=== PATIENT | female | born 1975 ===

== ENCOUNTER 2017-01-19 10:17 | Emergency (ER) | payer MEDICAID, OTHER ==
[2017-01-19 10:18] VITALS: BMI 24.1
[2017-01-19 10:45] VITALS: BP 105/73; PULSE 62; RESP 14; TEMP 98.3; O2SAT 100
--- NOTE | 2017-01-19 11:25 | ED PDOC ---
HPI: Psych/Substance Abuse Time Seen by Provider: 01/19/17 10:32 Chief Complaint (Nursing): Medical Clearance Chief Complaint (Provider): Medical Clearance History Per: Patient History/Exam Limitations: no limitations Onset/Duration Of Symptoms: Mins (Prior to arrival) Current Symptoms Are (Timing): Still Present Additional Complaint(s): Emma Hendricks is a 41 year old female who was brought in by police under arrest for medical and psychiatric clearance. Patients have no complaints. Patients deny any medical history. PMD: Adam Schaffer MD Past Medical History Reviewed: Historical Data, Nursing Documentation, Vital Signs Vital Signs: Last Vital Signs Temp 98.3 F 01/19/17 10:44 Pulse 62 01/19/17 10:44 Resp 14 01/19/17 10:44 BP 105/73 01/19/17 10:44 Pulse Ox 100 01/19/17 10:44 - Medical History PMH: Anemia, Anxiety, Arthritis, Asthma, Depression, Gastrointestinal Ulcer, Pneumonia Denies: Dementia, Diabetes, Hepatitis, HIV, HTN, Personality Disorder, Post Traumatic Stress Disorder, Chronic Kidney Disease, Schizophrenia, Seizures, Sexually Transmitted Disease - Family History Family History: States: Unknown Family Hx - Social History Current smoker - smoking cessation education provided: Yes (Some days) Alcohol: None Drugs: Opiates (Heroin, patient denies) - Immunization History Hx Tetanus Toxoid Vaccination: No Hx Influenza Vaccination: No Hx Pneumococcal Vaccination: No - Home Medications Home Medications: Ambulatory Orders Medication Instructions Recorded No Known Home Med 12/20/15 - Allergies Allergies/Adverse Reactions: Allergies Allergy/AdvReac Type Severity Reaction Status Date / Time No Known Allergies Allergy Verified 01/19/17 10:34 Review of Systems ROS Statement: Except As Marked, All Systems Reviewed And Found Negative Physical Exam - Reviewed Nursing Documentation Reviewed: Yes Vital Signs Reviewed: Yes - Physical Exam Appears: Positive for: Well, Non-toxic, No Acute Distress Head Exam: Positive for: ATRAUMATIC, NORMAL INSPECTION, NORMOCEPHALIC Skin: Positive for: Normal Color, Warm, Dry Eye Exam: Positive for: Normal appearance, EOMI. Negative for: PERRL (Pupils pinpoint and slowly reactive to light) Neck: Positive for: Normal, Painless ROM, Supple Cardiovascular/Chest: Positive for: Regular Rate, Rhythm. Negative for: Murmur Respiratory: Positive for: Normal Breath Sounds. Negative for: Respiratory Distress Gastrointestinal/Abdominal: Positive for: Normal Exam, Bowel Sounds, Soft. Negative for: Tenderness Back: Positive for: Normal Inspection. Negative for: L CVA Tenderness, R CVA Tenderness, Vertebral Tenderness Extremity: Positive for: Normal ROM. Negative for: Pedal Edema, Deformity Neurologic/Psych: Positive for: Other (Lethargic, but arousable with slurred speech) - ECG O2 Sat by Pulse Oximetry: 100 (RA) Pulse Ox Interpretation: Normal Medical Decision Making Medical Decision Making: Time: 10:40 --Pending medical clearance. Scribe Attestation: Documented by Benjamin Stinson acting as a scribe for Lyle Paul MD. Scribe Attestation: All medical record entries made by the Scribe were at my direction and personally dictated by me. I have reviewed the chart and agree that the record accurately reflects my personal performance of the history, physical exam, medical decision making, and the department course for this patient. I have also personally directed, reviewed, and agree with the discharge instructions and disposition. Disposition - Clinical Impression Clinical Impression: Substance abuse - Patient ED Disposition Is Patient to be Admitted: No Counseled Patient/Family Regarding: Diagnosis, Need For Followup - Disposition Referrals: [facility] [Outside] Disposition: Discharged/Transfer to Law Enforcement Disposition Time: 11:41 Condition: FAIR Additional Instructions: Medically and psychiatrically stable for incarceration Instructions: Narcotic Abuse (ED) Forms: [employer] ([place])
== END 2017-01-19 17:50 ==
LOC: H.ER 10:17
DX: F19.10 Other psychoactive substance abuse, uncomplicated (principal); F17.200 Nicotine dependence, unspecified, uncomplicated; Z86.59 Personal history of other mental and behavioral disorders; J45.909 Unspecified asthma, uncomplicated; Z02.89 Encounter for other administrative examinations; Z00.8 Encounter for other general examination

== ENCOUNTER 2017-02-27 01:52 | Emergency (ER) | payer MEDICAID, OTHER ==
[2017-02-27 01:52] VITALS: BMI 24.1
[2017-02-27 02:01] VITALS: BP 116/68; PULSE 99; RESP 16; TEMP 97.1; O2SAT 97
[2017-02-27] MEDS ORDERED: ceFAZolin 1 GM in Sodium Chloride 0.9% 100 ML IVPB ONE (02:41)
[2017-02-27 03:33] LABS: BASO % 0.4 % (0.0-2.0); EOS % 0.1 % (0.0-4.0); HEMATOCRIT 30.1 % (34.0-47.0); LYMPH # 1.8 K/uL (1.0-4.3); LYMPH % 13.6 % (20.0-40.0); MEAN CELL VOLUME 79.2 fl (81.0-99.0); MEAN CORPUSCULAR HEMOGLOBIN 25.5 pg (27.0-31.0); MEAN CORPUSCULAR HGB CONC 32.2 g/dL (33.0-37.0); MEAN PLATELET VOLUME 9.1 fl (7.2-11.7); MONO # 1.1 K/uL (0.0-0.8); MONO % 8.2 % (0.0-10.0); NEUT # 10.2 K/uL (1.8-7.0); NEUT % 77.7 % (50.0-75.0); RED CELL DISTRIBUTION WIDTH 16.1 % (11.5-14.5); WHITE BLOOD COUNT 13.2 K/uL (4.8-10.8)
[2017-02-27 03:39] LABS: CALCIUM 8.2 mg/dL (8.4-10.2); CARBON DIOXIDE 26 mmol/L (22-30); CHLORIDE 105 mmol/L (98-107); GFR AFRICAN-AMERICAN > 60; GLUCOSE,RANDOM 104 mg/dL (65-105); SODIUM 140 mmol/l (132-148)
[2017-02-27 03:41] LABS: ALB/GLOB RATIO 0.8 (1.0-2.1); ALKALINE PHOSPHATASE 98 U/L (38-126); ALT/SGPT 34 U/L (9-52); AST/SGOT 53 U/L (14-36); BILIRUBIN,TOTAL 1.3 mg/dl (0.2-1.3); BLOOD UREA NITROGEN 15 mg/dl (7-17); POTASSIUM 3.7 MMOL/L (3.6-5.0); TOTAL PROTEIN 7.9 G/DL (6.3-8.2)
--- NOTE | 2017-02-27 05:05 | ED PDOC ---
Lower Extremity Pain/Injury Time Seen by Provider: 02/27/17 02:07 Chief Complaint (Nursing): Lower Extremity Problem/Injury Past Medical History Vital Signs: Last Vital Signs Temp 97.1 F L 02/27/17 01:58 Pulse 99 H 02/27/17 01:58 Resp 16 02/27/17 01:58 BP 116/68 02/27/17 01:58 Pulse Ox 97 02/27/17 01:58 - Medical History PMH: Anemia, Anxiety, Arthritis, Asthma, Depression, Gastrointestinal Ulcer, Pneumonia Denies: Dementia, Diabetes, Hepatitis, HIV, HTN, Personality Disorder, Post Traumatic Stress Disorder, Chronic Kidney Disease, Schizophrenia, Seizures, Sexually Transmitted Disease - Family History Family History: States: Unknown Family Hx - Immunization History Hx Tetanus Toxoid Vaccination: No Hx Influenza Vaccination: No Hx Pneumococcal Vaccination: No - Home Medications Home Medications: Ambulatory Orders Medication Instructions Recorded Cephalexin [Keflex] 500 mg PO BID #20 capsule 02/27/17 Sulfamethoxazole/Trimethoprim 1 each PO BID #20 tablet 02/27/17 [Bactrim 400-80 mg Tablet] - Allergies Allergies/Adverse Reactions: Allergies Allergy/AdvReac Type Severity Reaction Status Date / Time No Known Allergies Allergy Verified 01/19/17 10:34 Physical Exam - Reviewed Nursing Documentation Reviewed: Yes Vital Signs Reviewed: Yes - Physical Exam Appears: Positive for: Well, Non-toxic, No Acute Distress Head Exam: Positive for: ATRAUMATIC, NORMAL INSPECTION, NORMOCEPHALIC Skin: Positive for: Warm. Negative for: Normal Color ((+) non-blanching erythema of the right anterior lower leg ) Eye Exam: Positive for: Normal appearance ENT: Positive for: Normal ENT Inspection Neck: Positive for: Normal, Painless ROM Cardiovascular/Chest: Positive for: Regular Rate, Rhythm Respiratory: Positive for: CNT, Normal Breath Sounds Back: Positive for: Normal Inspection Extremity: Positive for: Normal ROM Neurologic/Psych: Positive for: Alert, Oriented - Laboratory Results Result Diagrams: 02/27/17 02:55 02/27/17 02:55 - ECG O2 Sat by Pulse Oximetry: 97 Medical Decision Making Medical Decision Making: IV antibiotics given in ER. Disposition - Clinical Impression Clinical Impression: Cellulitis - Patient ED Disposition Is Patient to be Admitted: No Counseled Patient/Family Regarding: Diagnosis, Need For Followup, Rx Given - Disposition Referrals: Podiatry Clinic [Outside] Disposition: Routine/Home Disposition Time: 05:04 Condition: GOOD Additional Instructions: Please follow-up in 2 days with PMD or podiatry clinic. Return for worsening symptoms or fever. Prescriptions: Cephalexin [Keflex] 500 mg PO BID #20 capsule Sulfamethoxazole/Trimethoprim [Bactrim 400-80 mg Tablet] 1 each PO BID #20 tablet Instructions: Cellulitis (ED)
--- NOTE | 2017-02-27 08:44 | RAD ---
PROCEDURE: Right ankle radiographs. HISTORY: fall, ankle pain COMPARISON: None. FINDINGS: BONES: Normal. No fracture. JOINTS: Normal. No dislocation. SOFT TISSUES: Lateral ankle sprain with soft tissue thickening. OTHER FINDINGS: None. IMPRESSION: Lateral ankle sprain with soft tissue thickening.
== END 2017-02-27 06:05 | disposition home or self-care (01) ==
LOC: H.ER 01:52
DX: L03.116 Cellulitis of left lower limb (principal); F32.9 Major depressive disorder, single episode, unspecified; F41.9 Anxiety disorder, unspecified; J45.909 Unspecified asthma, uncomplicated
CPT/HCPCS: 73610; 80053; 85025; 87040; 96365; 99282; J0690

== ENCOUNTER 2017-02-28 04:18 | Emergency (ER) | payer MEDICAID ==
[2017-02-28 04:18] VITALS: BMI 24.1
[2017-02-28 04:50] VITALS: BP 109/84; PULSE 93; RESP 16; TEMP 98.4; O2SAT 100
--- NOTE | 2017-02-28 05:52 | ED PDOC ---
Lower Extremity Pain/Injury Time Seen by Provider: 02/28/17 05:50 Chief Complaint (Nursing): Lower Extremity Problem/Injury Chief Complaint (Provider): right lower leg infection History Per: Patient History/Exam Limitations: no limitations Additional Complaint(s): 41yo F in ED for evla of worsening cellulites to her right lower leg-was seen in ED yesterday Rx abd and given IV dose abx in ER was told to have f.u. PT however states lesion is drainage, redness is getting worse pain in worsening and she is having chills. Against Medical Advice - AMA Patient Left Against Medical Advice: The patient declines admission to the hospital and wishes to leave the Emergency Department. This action is against my medical advice. This decision was made with informed refusal. The patient was told that admission to the hospital is necessary. Explanation of the reasons why were discussed. The risks of leaving were explained to the patient and include, but are not limited to, worsening of known or currently unknown conditions, permanent disability and from undiagnosed or untreated conditions. The patient has the capacity to make this informed decision and understands my explanation of the current medical problem and risks of leaving. The patient voluntarily accepts these risks and signed an AMA form documenting our conversation. The patient was given the opportunity to ask questions and reconsider. The patient was encouraged to return to the Emergency Department at any time for further care. Past Medical History Reviewed: Historical Data, Nursing Documentation, Vital Signs Vital Signs: Last Vital Signs Temp 98.4 F 02/28/17 04:47 Pulse 93 H 02/28/17 04:47 Resp 16 02/28/17 04:47 BP 109/84 02/28/17 04:47 Pulse Ox 100 02/28/17 04:47 - Medical History PMH: Anemia, Anxiety, Arthritis, Asthma, Depression, Gastrointestinal Ulcer, Pneumonia Denies: Dementia, Diabetes, Hepatitis, HIV, HTN, Personality Disorder, Post Traumatic Stress Disorder, Chronic Kidney Disease, Schizophrenia, Seizures, Sexually Transmitted Disease - Family History Family History: States: Unknown Family Hx - Immunization History Hx Tetanus Toxoid Vaccination: No Hx Influenza Vaccination: No Hx Pneumococcal Vaccination: No - Home Medications Home Medications: Ambulatory Orders Medication Instructions Recorded Cephalexin [Keflex] 500 mg PO BID #20 capsule 02/27/17 Sulfamethoxazole/Trimethoprim 1 each PO BID #20 tablet 12/09/17 [Bactrim 400-80 mg Tablet] - Allergies Allergies/Adverse Reactions: Allergies Allergy/AdvReac Type Severity Reaction Status Date / Time No Known Allergies Allergy Verified 01/19/17 10:34 Wells Criteria for PE - Wells Criteria for Pulmonary Embolism Clinical Signs and Symptoms of DVT: No P.E is #1 Diagnosis, or Equally Likely: No Heart Rate >100: No Immobilization at least 3 days;Surgery previous 4 weeks: No Previous, objectively diagnosed PE or DVT: No Hemoptysis: No Malignancy w/treatment within 6 months, or palliative: No Total Score: 0 Review of Systems ROS Statement: Except As Marked, All Systems Reviewed And Found Negative Constitutional: Positive for: Chills. Negative for: Fever, Sweats Musculoskeletal: Positive for: Leg Pain Skin: Positive for: Lesions Physical Exam - Reviewed Nursing Documentation Reviewed: Yes Vital Signs Reviewed: Yes - Physical Exam Appears: Positive for: Well, Non-toxic, No Acute Distress Skin: Positive for: Normal Color, Warm, DRY Cardiovascular/Chest: Positive for: Regular Rate, Rhythm Respiratory: Positive for: CNT, Normal Breath Sounds Extremity: Positive for: Other (right lower ant. leg-lesion noted width of entire lower leg red, hot drainage streaking and swelling with foul smell. ). Negative for: Calf Tenderness Neurologic/Psych: Positive for: Alert, Oriented - ECG O2 Sat by Pulse Oximetry: 100 - Progress ED Course And Treament: Pt will most likely required admission for worsening cellulites. will order xray of leg and following labs/abx Orders Category Date Time Status VENOUS BLOOD GAS SHOCK PANEL Stat BG 02/28/17 05:05 Ordered CMP [COMP METABOLIC PANEL] Stat Chem 02/28/17 05:05 Ordered CBC (WITH DIFFERENTIAL) Stat KEVIN 02/28/17 05:05 Ordered Vancomycin [Vancomycin Inj] 1 gm Med 02/28/17 05:02 Active Sodium Chloride 0.9% 250 ml IVPB STAT Medical Decision Making Medical Decision Making: pt is requesting pain control and states that she need to care for her granddaughter. she is unable to stay in ER for treatment and labs work. state tshe will return to ER later today for further eval and/or admission. pt understands the risks she assumes. pt will AMA. Pt advised to continue abx she has at home. MD Geoff made aware., Disposition - Clinical Impression Clinical Impression: Cellulitis - Patient ED Disposition Is Patient to be Admitted: No - Disposition Disposition: Against Medical Advice Disposition Time: 05:58 Condition: UNKNOWN Instructions: Cellulitis (ED) Forms: [facility] ED AMA
== END 2017-02-28 06:14 | disposition left against medical advice (07) ==
LOC: H.ER 04:18
DX: L03.115 Cellulitis of right lower limb (principal); Z86.59 Personal history of other mental and behavioral disorders